=== PATIENT | male | born 1955 | race African-American/Black ===

== ENCOUNTER 2017-02-14 00:17 | Emergency (ER) | payer OTHER ==
[~2017-02-14] VITALS: Ht 177.8 cm; Wt 100.0 kg
[~2017-02-14 00:17] MED LIST: HYDROCHLOROTHIAZIDE; IBUP100T53; TRAM50TA3
[2017-02-14] MEDS ORDERED: KETOROLAC 30MG/ML VIAL IV ONE (02:15)
[2017-02-14 02:27] LABS: HEMATOCRIT. 43.4 % (42.0-52.0); HEMOGLOBIN. 14.2 g/dL (14.0-18.0); MEAN CORPUSCULAR HEMOGLOBIN 27.8 pg (28.0-32.0); MEAN CORPUSCULAR HGB CONC 32.8 g/dL (31.0-37.0); MEAN CORPUSCULAR VOLUME 84.8 fL (80.0-94.0); MEAN PLATELET VOLUME 9.5 fl (7.4-10.4); PLATELET 149 x1000/uL (130-400); RED BLOOD CELL COUNT 5.12 mill/uL (4.7-6.1); RED CELL DISTRIBUTION WIDTH 14.4 % (11.6-14.6); WHITE BLOOD COUNT 27.2 x1000/uL (4.5-11.0)
[2017-02-14 02:28] LABS: DIFFERENTIAL COMMENT 1
[2017-02-14 03:54] VITALS: BP 162/86
[2017-02-14 05:45] LABS: PLATELET ESTIMATE NORMAL
== END 2017-02-14 05:13 | disposition home or self-care (01) ==
LOC: ER 00:25
DX: N43.3 Hydrocele, unspecified (principal); I10 Essential (primary) hypertension; F17.200 Nicotine dependence, unspecified, uncomplicated; F12.10 Cannabis abuse, uncomplicated; Z88.8 Allergy status to other drugs, medicaments and biological substances
CPT/HCPCS: 36415; 76870; 85025; 93976; 96374; 99285; J1885; Z7610